=== PATIENT | female | born 1965 | race Caucasian/White ===

== ENCOUNTER 2022-11-25 01:43 | Inpatient (IN) | payer OTHER ==
[2022-11-25] VITALS (8 sets, daily range): BP systolic 105–132; PULSE 96–110; RESP 15–18; TEMP 96.5–97.6; O2SAT 95–98
[~2022-11-25] VITALS: Ht 172.7 cm; Wt 94.3 kg
--- NOTE | 2022-11-25 01:55 | NUR ---
PATIENT PRESENTS WITH ABD PAIN X 2 WEEKS, SOB X 5 DAYS, 9/10 PAIN, INSTRUCTED NOTED TO EAT OR DRINK
--- NOTE | 2022-11-25 02:00 | NUR ---
PATIENT PLACED IN ED BED 4, REPORT GIVEN TO DON VALDEZ
--- NOTE | 2022-11-25 02:10 | NUR ---
PT BIB SELF FROM STREET C/O SOB AND AND THROAT TIGHTNESS. PT STATES ABD PAIN X 2 WEEKS. PT STATES PAIN IS 10/10. PT STATES HAS DIEHL AND NAUSEA BUT DENIES URINARY SYMPTOMS. PT HX OF BREAST CA AND BILATERAL MASTECTOMY, AND HTN. PT STATES ALL TESTING SHOULD BE DONE ON LEFT SIDE. PT RESTING IN BED WITH RAILS UP VSS
--- NOTE | 2022-11-25 02:15 | NUR ---
ER at bedside examining patient.
--- NOTE | 2022-11-25 02:30 | NUR ---
BLOOD SAMPLE SENT TO LAB
[2022-11-25] MEDS ORDERED: iohexoL 350 mgI/mL, 100 ML INFUS..BTL IV ONE (02:37)
[2022-11-25 02:42] LABS: BASOPHILS # (AUTO) 0.1 K/uL (0.0-0.2); BASOPHILS % (AUTO) 0.7 % (0.0-2.0); EOSINOPHILS # (AUTO) 0.3 K/uL (0.0-0.4); EOSINOPHILS % (AUTO) 3.3 % (0.0-4.0); HEMATOCRIT 45.4 % (36-48); HEMOGLOBIN 14.7 g/dL (12.0-16.0); LYMPHOCYTES # (AUTO) 3.1 K/uL (1.0-5.5); LYMPHOCYTES % (AUTO) 28.7 % (20.5-51.5); MEAN CORPUSCULAR HEMOGLOBIN 29 pg (27-31); MEAN CORPUSCULAR HGB CONC 32 % (32-36); MEAN CORPUSCULAR VOLUME 89 fL (79.0-98.0); MONOCYTES # (AUTO) 0.8 K/uL (0.0-1.0); MONOCYTES % (AUTO) 7.3 % (1.7-9.3); NEUTROPHILS # (AUTO) 6.4 K/uL (1.8-7.7); PLATELET COUNT (AUTO) 207 K/uL (130-430); RED CELL DISTRIBUTION WIDTH 15.2 % (9.0-15.0); WHITE BLOOD COUNT (AUTO) 10.6 K/uL (4.8-10.8)
[2022-11-25 02:58] LABS: ANION GAP 10 (5-15); CALCIUM 8.5 mg/dL (8.4-11.0); CHLORIDE 104 mmol/L (98-107); CREATININE 0.91 mg/dL (0.55-1.30); GFR AFRICAN AMERICAN 82 mL/min (>90); GLUCOSE 118 mg/dL (74-106); UREA NITROGEN, BLOOD 25 mg/dL (8-21)
[2022-11-25 03:01] LABS: BILIRUBIN,URINE 1+ (NEGATIVE); BLOOD, URINE 1+ (NEGATIVE); COLOR,URINE YELLOW (YELLOW); GLUCOSE,URINE NEGATIVE (NEGATIVE); KETONES,URINE NEGATIVE (NEGATIVE); LEUKOCYTE ESTERASE ,URINE NEGATIVE (NEGATIVE); NITRITE, URINE NEGATIVE (NEGATIVE); PH,URINE 5.5 (5.0-8.0); PROTEIN URINE 2+ (NEGATIVE); UROBILINOGEN,URINE 0.2 (0.2-1.0)
[2022-11-25 03:12] LABS: ALANINE AMINOTRANSFERASE 248 U/L (12-78); ALBUMIN 3.5 g/dL (3.4-4.8); ASPARTATE AMINOTRANSFERASE 121 U/L (10-37); LIPASE 37 U/L (73-393); THYROID STIMULATING HORMONE 6.02 uIu/mL (0.34-4.82); TOTAL BILIRUBIN 0.9 mg/dL (0.0-1.0)
[2022-11-25] MEDS ORDERED: LORazepam 1 MG TABLET PO ONE (03:15)
[2022-11-25 03:19] LABS: CLARITY/URINE SLIGHTLY CLOUDY (CLEAR)
[2022-11-25 03:20] LABS: BACTERIA,URINE None Seen /HPF (None Seen); WBC,URINE 0-3 /HPF (0-3)
--- NOTE | 2022-11-25 03:32 | NUR ---
PT BACK FROM CT, RESTING COMFORTABLY IN BED WITH RAILS UP
[2022-11-25] MEDS ORDERED: FUROSEMIDE 20 MG/2 ML VIAL IVP ONE ×2 (04:15→13:45)
[2022-11-25] MEDS ORDERED: CYCL10TA25 PO (05:56)
[2022-11-25] MEDS ORDERED: DULO20CA19 PO (05:56)
[2022-11-25] MEDS ORDERED: HYDR-3927 PO (05:56)
[2022-11-25] MEDS ORDERED: MELO-89 (05:58)
--- NOTE | 2022-11-25 06:04 | NUR ---
Admit bed requested Patient will be admitted to care of . Admitted to TELE unit. Diagnosis CHF Inpatient (Yes or No) YES Observation (Yes or No) NO Orientation concerns or request close to nursing station (Yes or No) NO Covid Status NA On vent or bipap NO Isolation requirements NO Needs a sitter NO From Home (Yes or if No enter name of facility) CAR Requires Dialysis (Yes or No) NO Med Rec Completed (Yes of No) YES
--- NOTE | 2022-11-25 07:19 | NUR ---
REPORT GIVEN TO EDUARD VALDEZ
--- NOTE | 2022-11-25 08:00 | NUR ---
PT RESTING QUIETLY. NO CHANGES, AWAITING TELEMETRY BED ASSIGNMENT
--- NOTE | 2022-11-25 08:16 | NUR ---
Patient will be admitted to care of DR DELEON. Admitted to TELE unit. Will go to room 101A. Belongings list completed. Complete and up to date summary report printed. SBAR report to be given at bedside with opportunity for questions. REPORT WILL BE GIVEN BY ARAMIS AT BEDSIDE.
--- NOTE | 2022-11-25 08:35 | NUR ---
Patient taken to Telemetry Unit 101A by milad by SAVE ALL OPERATOR & EMT. Was able to self transfer to bed wih standby assist. Patient in stable condition upon admit to Tele unit. Report given to JOSÉ MIGUEL Tellez & JOSÉ MIGUEL Choudhary at nurse's station with opportunity for questions. Paperwork provided to Charge Nurse for chart creation. Belongings & med rec completed prior to admit.
--- NOTE | 2022-11-25 08:45 | NUR ---
ADMISSION: MARYCHUY SAMUEL, 57 yearsold Female admitted from E. by KEYON DELEON MD, was given written information regarding hospital policies, unit procedures and contact persons. Pt is alert and responsive. Periph IV on the left arm intact.Personal belongings and call light within reach.
--- NOTE | 2022-11-25 15:16 | NUR ---
CONSULTATION PAGED/CALLED Reason for Consultation: chf Person Who was Notified: jailyn mejiarecreation officer Consulting Physician: Dr. Serrano Ice Cream Vault Worker Specialty: cardio Ordering Physician: Dr. Pride
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
--- NOTE | 2022-11-25 17:30 | NUR ---
MD ROUNDS; AT BEDSIDE, ASSESSING PT.
[2022-11-25] MEDS ORDERED: TEMAZEPAM 15 MG CAPSULE PO PRN (18:00)
--- NOTE | 2022-11-25 18:04 | NUR ---
CONSULTATION PAGED/CALLED Reason for Consultation: cirrhosis Person Who was Notified: miladys Sexton Consulting Physician: Dr. Reyez, Dr. Cavazos obiee consultant Employee Health Nurse Specialty: GI Ordering Physician: Dr. Pride
--- NOTE | 2022-11-25 18:07 | NUR ---
CONSULTATION PAGED/CALLED Reason for Consultation: pleural effusion Person Who was Notified: miladys Villegas Consulting Physician: Dr. Peterson inspector clip on sunglasses for Dr. Beckwith Wind Energy Project Manager Specialty: pulmo Ordering Physician: Dr. Pride
[2022-11-25] MEDS ORDERED: LACTULOSE 20 GM/30 ML UDC PO ONE (18:15)
[2022-11-25] MEDS ORDERED: IPRATROPIUM/ALBUTEROL SULFATE 3 ML AMPUL.NEB (DUONEB) INH PRN (18:15)
[2022-11-25] MEDS ORDERED: IPRATROPIUM/ALBUTEROL SULFATE 3 ML AMPUL.NEB (DUONEB) INH ONE (18:15)
--- NOTE | 2022-11-25 18:40 | NUR ---
CLOSING NOTES Pt stable, New order for drug urine sample noted and carried out.Fall precaution maintained. Call light in reach.
[2022-11-25] MEDS ORDERED: THIAMINE HCL 100 MG in NS 50 ML IV ONE (19:00)
--- NOTE | 2022-11-25 19:00 | NUR ---
CALLED PHARMACY FOR THIAMINE IV MED, STILL BEING PREPARED. WILL DELIVER THE MED SOON.
[2022-11-25] MEDS: IPRATROPIUM/ALBUTEROL SULFATE 3 ML AMPUL.NEB (DUONEB) INH SCH (20:20)
--- NOTE | 2022-11-25 20:25 | NUR ---
SBAR Report given to Rene VALDEZ .
[2022-11-25] MEDS: FUROSEMIDE 40 MG/4 ML VIAL IVP SCH (21:15)
[2022-11-25] MEDS: LACTULOSE 20 GM/30 ML UDC PO SCH (21:15)
[2022-11-25] MEDS: SPIRONOLACTONE 25 MG TABLET (ALDACTONE) PO SCH (21:16)
[2022-11-25] MEDS: CARVEDILOL 6.25 MG TABLET (COREG) PO SCH (21:17)
[2022-11-25] MEDS: SACUBITRIL/VALSARTAN 24 MG-26 MG 1 TABLET PO SCH (21:22)
[2022-11-26] VITALS (8 sets, daily range): BP systolic 82–114; PULSE 76–91; RESP 18–20; TEMP 97.3–97.9; O2SAT 95–100
[2022-11-26 00:55] LABS: BARBITURATE, URINE NEGATIVE (NEG <=200); BENZODIAZEPINE, URINE NEGATIVE (NEG <=150); CANNABINOID, URINE POSITIVE (NEG <=50); COCAINE, URINE NEGATIVE (NEG <=150); METHAMPHETAMINES SCREEN,URINE NEGATIVE (NEG <=500); OPIATE, URINE NEGATIVE (NEG <=100); PHENCYCLIDINE SCREEN,URINE NEGATIVE (NEG <=25); UR TRICYCLIC ANTIDEPRESSANTS NEGATIVE (NEG <=300); URINE AMPHETAMINE NEGATIVE (NEG <=500); URINE METHADONE NEGATIVE (NEG <=200); URINE OXYCODONE SCREEN NEGATIVE (NEG <=100); URINE PROPOXYPHENE SCREEN NEGATIVE (NEG <=300)
[2022-11-26 05:33] LABS: BASOPHILS # (AUTO) 0.1 K/uL (0.0-0.2); BASOPHILS % (AUTO) 0.8 % (0.0-2.0); EOSINOPHILS # (AUTO) 0.3 K/uL (0.0-0.4); EOSINOPHILS % (AUTO) 3.9 % (0.0-4.0); HEMATOCRIT 41.5 % (36-48); HEMOGLOBIN 13.5 g/dL (12.0-16.0); LYMPHOCYTES # (AUTO) 2.6 K/uL (1.0-5.5); LYMPHOCYTES % (AUTO) 33.4 % (20.5-51.5); MEAN CORPUSCULAR HEMOGLOBIN 29 pg (27-31); MEAN CORPUSCULAR HGB CONC 33 % (32-36); MEAN CORPUSCULAR VOLUME 89 fL (79.0-98.0); MONOCYTES # (AUTO) 0.6 K/uL (0.0-1.0); MONOCYTES % (AUTO) 7.8 % (1.7-9.3); NEUTROPHILS # (AUTO) 4.2 K/uL (1.8-7.7); NEUTROPHILS % (AUTO) 54.1 % (40.0-70.0); PLATELET COUNT (AUTO) 157 K/uL (130-430); RED BLOOD CELL COUNT(AUTO) 4.68 MIL/uL (4.2-6.2); RED CELL DISTRIBUTION WIDTH 15.2 % (9.0-15.0); WHITE BLOOD COUNT (AUTO) 7.7 K/uL (4.8-10.8)
[2022-11-26 05:40] LABS: CALCIUM 8.1 mg/dL (8.4-11.0); CREATININE 0.86 mg/dL (0.55-1.30)
[2022-11-26 05:53] LABS: ALBUMIN 2.8 g/dL (3.4-4.8); THYROID STIMULATING HORMONE 3.96 uIu/mL (0.34-4.82); TOTAL BILIRUBIN 1.5 mg/dL (0.0-1.0)
[2022-11-26 06:01] LABS: INR 1.3 (0.8-1.2); PROTHROMBIN TIME 13.3 SECS (9.5-12.5)
[2022-11-26] MEDS: LEVOTHYROXINE SODIUM 0.025 MG TABLET PO SCH (06:57)
--- NOTE | 2022-11-26 08:29 | NUR ---
MORNING NOTES Received pt. in bed with ultrasound of the abdomen on going. Pt is alert and responsive. Vital signs taken. Pt verbalizes that she slept well last night compared to when she got admitted yesterday. Encouraged pt to eat breakfast afterwards. Personal belongings and call light within reach. Fall precaution maintained.
[2022-11-26] MEDS: IPRATROPIUM/ALBUTEROL SULFATE 3 ML AMPUL.NEB (DUONEB) INH SCH ×4 (08:57→20:22)
[2022-11-26] MEDS: CARVEDILOL 6.25 MG TABLET (COREG) PO SCH ×2 (09:00→21:46)
[2022-11-26] MEDS: SACUBITRIL/VALSARTAN 24 MG-26 MG 1 TABLET PO SCH ×2 (09:00→21:49)
[2022-11-26] MEDS ORDERED: FUROSEMIDE 20 MG/2 ML VIAL IVP SCH (09:00)
[2022-11-26] MEDS: FOLIC ACID 1 MG TABLET PO SCH (09:49)
[2022-11-26] MEDS: THIAMINE HCL 100 MG TABLET PO SCH (09:49)
[2022-11-26] MEDS: MULTIVITAMINS TAB 1 TABLET PO SCH (09:49)
[2022-11-26] MEDS: LACTULOSE 20 GM/30 ML UDC PO SCH ×2 (09:50→21:46)
[2022-11-26] MEDS: CHOLECALCIFEROL (VITAMIN D3) 2,000 UNIT TABLET PO SCH (09:50)
[2022-11-26] MEDS: SPIRONOLACTONE 25 MG TABLET (ALDACTONE) PO SCH ×2 (09:50→21:46)
[2022-11-26] MEDS: FUROSEMIDE 40 MG/4 ML VIAL IVP SCH ×2 (09:50→21:45)
[2022-11-26 11:25] LABS: TOTAL IRON BIND. CAPACITY 332 ug/dL (250-450)
[2022-11-26 11:26] LABS: ACETAMINOPHEN 1 ug/mL (1-30)
--- NOTE | 2022-11-26 11:50 | NUR ---
LEXII Received a call from the radar technician that the result of abdominal Ultrasound shows no ascites, rather hepatomegaly, right pleural effusion, unremarkable common bile duct, kidney, spleen, and visualized pancreas. Called and left a message with MD Pride office, He called back later and was notified of the result. , OK to cancel paracentesis order.
--- NOTE | 2022-11-26 12:05 | NUR ---
GI LAB: SPOKE WITH VALERI LINK TO CANCEL URINE DRUG SCREEN ,DUPLICATE ORDERS.
--- NOTE | 2022-11-26 13:45 | NUR ---
AMBULATE WITH PHYSICAL THERAPY: WITH OXYMIZER 6L/MIN ,PATIENT AMBULATED WITH PHYSICAL THERAPIST ASSIST VIA FWW ,O2 SATURATION=88-92%.SLOWLY TO THE DOOR THEN BACK TO HER BED.
--- NOTE | 2022-11-26 16:25 | NUR ---
MADE A PACKET FOR MS SAMUEL GAVE TO ADONIS JESUS CM.
--- NOTE | 2022-11-26 18:45 | NUR ---
CLOSING NOTES Pt. MD Shannen putnam came in and talked to pt about her diagnosis. Pt verbalizes understanding of the required test to be conducted. Fall precaution maintained, personal belongings and call light within reach.
--- NOTE | 2022-11-26 20:00 | NUR ---
Received pt from AM nurse. Pt is alert and responsive. Vital signs taken. Pt verbalizes that she slept well last night, and if she can have a sleeping pill tonight. . pt mentioned about her episodes of SOB afterwards. Pt currently on breathing txs. Personal belongings and call light within reach. Fall precaution maintained. will continue to monitor.
[2022-11-27] VITALS (8 sets, daily range): BP systolic 100–125; PULSE 68–97; RESP 14–21; TEMP 97.1–98.4; O2SAT 95–99
--- NOTE | 2022-11-27 02:30 | NUR ---
pt had an episode of v tach. vs 100/61, 80, 95% 2L
[2022-11-27 05:18] LABS: ALBUMIN 2.6 g/dL (3.4-4.8); CALCIUM 7.9 mg/dL (8.4-11.0); CREATININE 1.1 mg/dL (0.55-1.30); TOTAL BILIRUBIN 0.8 mg/dL (0.0-1.0)
[2022-11-27] MEDS: LEVOTHYROXINE SODIUM 0.025 MG TABLET PO SCH (06:25)
[2022-11-27 07:07] LABS: ALPHA-1-ANTITRYPSIN, S 180 mg/dL (101-187)
[2022-11-27] MEDS: IPRATROPIUM/ALBUTEROL SULFATE 3 ML AMPUL.NEB (DUONEB) INH SCH ×3 (07:44→19:48)
--- NOTE | 2022-11-27 07:46 | NUR ---
OPENING NOTE REPORT RCVD FROM OUTGOING NOC RN, ALL CARES ASSUMED. PATIENT STABLE IN NO ACUTE DISTRESS AND OR DISCOMFORT. ALL SAFETY PRECAUTIONS IN PLACE, BED LOW AND LOCKED FOR SAFETY, CALL LIGHT IN REACH. SRX2 FOR SAFETY. PATIENT REMAINS ON TELE MONITOR, HR WNL, MONITORING FOR CHANGES IN VITALS AND OR CONDITION.
[2022-11-27 08:06] LABS: FERRITIN 98 ng/mL (15-150)
[2022-11-27] MEDS ORDERED: POTASSIUM CHLORIDE 20 MEQ/PKT PACKET PO ONE (08:15)
--- NOTE | 2022-11-27 08:15 | NUR ---
Patient up in bed aox4, denies pain and or discomfort. Education provided on procedure set for today. All questions answered. Patient denies any needs at this time. Call light remains in reach.
[2022-11-27] MEDS: FOLIC ACID 1 MG TABLET PO SCH (08:17)
[2022-11-27] MEDS: LACTULOSE 20 GM/30 ML UDC PO SCH ×2 (08:17→21:05)
[2022-11-27] MEDS: SPIRONOLACTONE 25 MG TABLET (ALDACTONE) PO SCH ×2 (08:18→21:05)
[2022-11-27] MEDS: CHOLECALCIFEROL (VITAMIN D3) 2,000 UNIT TABLET PO SCH (08:18)
[2022-11-27] MEDS: MULTIVITAMINS TAB 1 TABLET PO SCH (08:18)
[2022-11-27] MEDS: THIAMINE HCL 100 MG TABLET PO SCH (08:18)
[2022-11-27] MEDS: SACUBITRIL/VALSARTAN 24 MG-26 MG 1 TABLET PO SCH ×2 (08:44→21:06)
[2022-11-27] MEDS: CARVEDILOL 6.25 MG TABLET (COREG) PO SCH ×2 (08:46→21:05)
[2022-11-27] MEDS: FUROSEMIDE 40 MG TABLET PO SCH (08:46)
--- NOTE | 2022-11-27 09:00 | NUR ---
Paged Pulmo pending return call. Per Radiologist patient will not need a Thoracentesis as fluid is too small.
[2022-11-27 10:07] LABS: ANTI NUCLEAR AB WITH REFLEX Negative (Negative); HEPATITIS A AB, IgM Negative (Negative); HEPATITIS B CORE AB, IgM Negative (Negative); HEPATITIS B SURFACE AG Negative (Negative)
[2022-11-27 11:07] LABS: AFP, TUMOR MARKER 3.2 ng/mL (0.0-9.2); CEA 1.9 ng/mL (0.0-4.7)
--- NOTE | 2022-11-27 11:15 | NUR ---
PULMO MAKING ROUNDS, DISCUSSING PLAN OF CARE
--- NOTE | 2022-11-27 12:00 | NUR ---
PAGED DR. DEELON, VD DOWNGRADE ORDER
--- NOTE | 2022-11-27 12:03 | NUR ---
PER PATIENT IS NOT ALLOWED TO VISIT PATIENT WHILE IN HOSPITAL. PER PATIENT TO NO RECEIVE ANY INFORMATION PERTAINING TO HER STAY HERE. HAVE NOTIFIED CHARGE AND MADE COW TENDER AWARE.
[2022-11-27] MEDS ORDERED: POTASSIUM CHLORIDE 20 MEQ TAB.PRT.SR PO ONE (13:45)
--- NOTE | 2022-11-27 14:15 | NUR ---
PHYSICAL THERAPY AT BEDSIDE
--- NOTE | 2022-11-27 14:29 | NUR ---
Molecular Biology Director regarding: homelessness In to see patient at bedside to discuss her housing issues. Per patient, she is homeless and resides in the [facility]. The patient typically resides off [facility] and [facility] in her car. She frequently comes back to the [facility] and will stay with her friend Aki who cooks for her from time to time and allows her to stay at his place. She uses no assistive devices and is independent with all of her care needs. She does not have a primary dr. and states she has minimal familial support. She does have a car to get around, receives approximately $280 in food stamps, has an outstanding application for GR and and outstanding application SSDI since 2013. Per patient, she has not followed up as she has a lot going on. I advised her that she should plan to re-apply as her circumstances have probably changed in the last 10 years. At discharge, the patient will go to her friend, Aki' home who is local in the [facility]. I inquired about an address, but she did not have that information readily available. Prior to leaving the room, I inquired about the patient's drug usage. Per patient, she does use marijuana and does not need to come off. She went on the say that she has to take marijuana for her cancer. i asked about her seeing an oncologist, and she stated she hasn't seen one yet due to covid. I inquired about utilizing oncology support services and even participating in a treatment program, and her reply was , "no fuck that, I need the marijuana". The patient was not interested in any treatment programs. I asked about her mental health needs, which she indicated there were no mental health needs that she needed to address. Friend, Aki: [phone] Patient: [phone]
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
--- NOTE | 2022-11-27 16:54 | NUR ---
RN ROUNDS ASSISTED PATIENT TO RESTROOM, GOWN CHANGE AND BED LINEN CHANGE COMPLETED. PATIENT FRIENDLY AND COOPERATIVE. EDUCATION PROVIDED ON DX AND PLAN OF CARE. ALL QUESTIONS ANSWERED.
[2022-11-27] MEDS ORDERED: SPIR25TA PO (17:53)
[2022-11-27] MEDS ORDERED: Potassium Chloride PO (17:53)
[2022-11-27] MEDS ORDERED: COR6.25 PO (17:53)
[2022-11-27] MEDS ORDERED: MULT400T13 PO (17:53)
[2022-11-27] MEDS ORDERED: FOLI-43 PO (17:53)
[2022-11-27] MEDS ORDERED: SACU1TAB PO (17:53)
[2022-11-27] MEDS ORDERED: VITD2000 PO (17:53)
[2022-11-27] MEDS ORDERED: FURO-149 PO (17:53)
[2022-11-27] MEDS ORDERED: Thiamine Hcl PO (17:53)
--- NOTE | 2022-11-27 18:08 | NUR ---
DR. DELEON AT BEDSIDE DISCUSSING PLAN OF CARE WITH PATIENT. PATIENT WILL D/C IN AM HOME
--- NOTE | 2022-11-27 19:30 | NUR ---
OPENING NOTE PT SITTING IN BED AND EYES OPEN. BREATHING EVEN, RESPIRATORY RATE 21. PT REPORTED FEELS ANXIETY. NO PAIN. PT'S ABD DISTENDED AND SOFT. PT NO PAIN WHEN TOUCHING BUT DISCOMFORT. SAFETY CHECKS IN PLACE. CALL LIGHT IN REACH. CONTINUE TO MONITOR
--- NOTE | 2022-11-27 21:30 | NUR ---
ANXIETY PT REPORTED ANXIETY AND ASKED MEDICATION. REQUESTS TO JOSÉ MIGUEL SAWYER FOR IV ATIVAN.
[2022-11-27] MEDS: LORazepam 2 MG/ML VIAL IVP PRN (21:41)
[2022-11-28] VITALS (7 sets, daily range): BP systolic 109–125; PULSE 89–98; RESP 16–21; TEMP 97.2–97.6; O2SAT 94–99
[2022-11-28] MEDS: IPRATROPIUM/ALBUTEROL SULFATE 3 ML AMPUL.NEB (DUONEB) INH SCH ×3 (01:00→14:31)
--- NOTE | 2022-11-28 02:26 | NUR ---
ANXIETY PT SAID SHE CAN'T SLEEP BECAUSE OF ANXIETY. ASKS ANXIETY MEDICATION. ASK TO JOSÉ MIGUEL SAWYER FOR ADMINISTER ATIVAN IV.
[2022-11-28] MEDS: LORazepam 2 MG/ML VIAL IVP PRN (02:36)
--- NOTE | 2022-11-28 04:49 | NUR ---
ROUNDING NOTE PT LYING IN BED AND EYES CLOSED, RESTING. BREATHING EVEN. CONTINUE TO MONITOR
[2022-11-28 05:14] LABS: BASOPHILS % (AUTO) 0.5 % (0.0-2.0); EOSINOPHILS # (AUTO) 0.5 K/uL (0.0-0.4); EOSINOPHILS % (AUTO) 5.5 % (0.0-4.0); HEMOGLOBIN 14.6 g/dL (12.0-16.0); LYMPHOCYTES % (AUTO) 33.6 % (20.5-51.5); MEAN CORPUSCULAR HEMOGLOBIN 29 pg (27-31); MEAN CORPUSCULAR HGB CONC 32 % (32-36); MEAN CORPUSCULAR VOLUME 90 fL (79.0-98.0); MONOCYTES # (AUTO) 0.8 K/uL (0.0-1.0); MONOCYTES % (AUTO) 8.6 % (1.7-9.3); NEUTROPHILS # (AUTO) 4.6 K/uL (1.8-7.7); NEUTROPHILS % (AUTO) 51.8 % (40.0-70.0); PLATELET COUNT (AUTO) 177 K/uL (130-430); RED BLOOD CELL COUNT(AUTO) 5.03 MIL/uL (4.2-6.2); RED CELL DISTRIBUTION WIDTH 15.3 % (9.0-15.0); WHITE BLOOD COUNT (AUTO) 8.9 K/uL (4.8-10.8)
[2022-11-28 05:28] LABS: ALBUMIN 2.9 g/dL (3.4-4.8); CALCIUM 8.5 mg/dL (8.4-11.0); CREATININE 0.89 mg/dL (0.55-1.30); TOTAL BILIRUBIN 0.9 mg/dL (0.0-1.0)
--- NOTE | 2022-11-28 07:00 | NUR ---
CLOSING NOTE PT LYING IN BED AND EYES CLOSED. BREATHING EVEN. NO PAIN REPORTED. SAFETY CHECKS IN PLACE. CALL LIGHT IN REACH. ENDORSED TO DAY SHIFT NURSE
[2022-11-28] MEDS ORDERED: POTASSIUM CHLORIDE 20 MEQ TAB.PRT.SR PO SCH (09:00)
[2022-11-28] MEDS: LACTULOSE 20 GM/30 ML UDC PO SCH (10:01)
[2022-11-28] MEDS: FOLIC ACID 1 MG TABLET PO SCH (10:01)
[2022-11-28] MEDS: CHOLECALCIFEROL (VITAMIN D3) 2,000 UNIT TABLET PO SCH (10:02)
[2022-11-28] MEDS: CARVEDILOL 6.25 MG TABLET (COREG) PO SCH (10:02)
[2022-11-28] MEDS: FUROSEMIDE 40 MG TABLET PO SCH (10:03)
[2022-11-28] MEDS: THIAMINE HCL 100 MG TABLET PO SCH (10:03)
[2022-11-28] MEDS: MULTIVITAMINS TAB 1 TABLET PO SCH (10:03)
[2022-11-28] MEDS: SPIRONOLACTONE 25 MG TABLET (ALDACTONE) PO SCH (10:04)
[2022-11-28] MEDS: SACUBITRIL/VALSARTAN 24 MG-26 MG 1 TABLET PO SCH (10:15)
--- NOTE | 2022-11-28 13:03 | NUR ---
PCP APPT CHF PROTOCOL PATIENT TO SEE NIK BRICE NURSE PRACTITIONER OF DR NORBERTO JONES FridayDECEMBER 02 AT 8;20AM AT [facility], ADDRESS PROVIDED AT PATIENT'S DC INSTRUCTION, SPOKE TO BABITA AND APPOINTMENT WAS ARRANGED.
--- NOTE | 2022-11-28 13:57 | NUR ---
Tool Dispatcher INVESTIGATIONS MANAGER met with pt. once more, provided her with additional resources. INVESTIGATIONS MANAGER asked pt if she could call Cady Cat on her behalf. Pt. stated INVESTIGATIONS MANAGER could. Pts. Malik is ar[place] in [place] and she will be headed to [place] where he kids stay with their father. Pt. Pt. will be headed there as soon as she can get some gas money. Cady Cat can call pts. cell phone, INVESTIGATIONS MANAGER called and left a message for Cady Cat. INVESTIGATIONS MANAGER will inquire about services in the [place] area.
[2022-11-28 14:06] LABS: LIVER-KIDNEY MICROSOMAL AB 1.2 Units (0.0-20.0)
--- NOTE | 2022-11-28 14:48 | NUR ---
PHYSICAL THERAPY CO-SIGN The Physical Therapy Progress Notes documented by Concrete Mixing Truck Driver have been reviewed. Reviewed/Co-Signed by: Ramakrishna Avendano Documentation Done by:STEPHANIA CAMPBELL Addendum: 11/28/22 at 1449 by Ramakrishna Avendano PT Amended: Links added.
--- NOTE | 2022-11-28 15:23 | NUR ---
D/C Patient to home picked up by a friend via personal vehicle. Patient's a/o x4, verbally responsive in no acute distress. Patient given medication reconciliation form and D/C instructions. Exit Care provided. Patient verbalized understanding. MD discussed with patient the results and treatment provided. Ambulatory with steady gait for discharge to home. Patient in stable condition, ID band removed. IV catheter removed, intact and dressing applied, no active bleeding. All belongings sent with patient. VSS, no c/o pain or discomfort.
[2022-11-29 10:07] LABS: ANTI-SMOOTH MUSCLE AB 7 Units (0-19)
== END 2022-11-28 15:25 | disposition home or self-care (01) | DRG 133 ==
LOC: SED 01:43 → STU 06:08 → SMU 11-27 12:26
PROVIDERS: ADMIT Internal Medicine; ATTEND Internal Medicine
DX: J96.01 Acute respiratory failure with hypoxia (principal); I50.41 Acute combined systolic (congestive) and diastolic (congestive) heart failure; I42.0 Dilated cardiomyopathy; R18.8 Other ascites; I11.0 Hypertensive heart disease with heart failure; J44.9 Chronic obstructive pulmonary disease, unspecified; F10.10 Alcohol abuse, uncomplicated; Y90.9 Presence of alcohol in blood, level not specified; F15.10 Other stimulant abuse, uncomplicated; F17.200 Nicotine dependence, unspecified, uncomplicated; K80.20 Calculus of gallbladder without cholecystitis without obstruction; Z79.1 Long term (current) use of non-steroidal anti-inflammatories (NSAID); Z59.00 Homelessness unspecified; Z79.899 Other long term (current) drug therapy; Z85.3 Personal history of malignant neoplasm of breast; Z90.13 Acquired absence of bilateral breasts and nipples; Z92.3 Personal history of irradiation; Z79.891 Long term (current) use of opiate analgesic; E87.6 Hypokalemia
CPT/HCPCS: 36415; 71045; 71275; 76376; 76604; 76700-TC; 80053; 80061; 80074; 80307; 81000; 82103; 82105; 82140; 82378; 82390; 82728; 83516; 83540; 83550; 83690; 83735; 83880; 84439; 84443; 84484; 84703; 85025; 85610-TC; 85730-TC; 86038; 86300; 86376; 93005; 93306; 94640; 94760; 96374; 97110-GP; 97116-GP; 97530-GP; 99285; G0378; G0480; G0481; J1940; J2060; J3411; Q9967